=== PATIENT | female | born 1980 | race Caucasian/White ===

== ENCOUNTER → 2021-03-09 10:06 | Outpatient (BNVA) | payer MEDICARE, MEDICAID, SELFPAY | PROVIDERS: PCP Internal Medicine; Referring Provider Internal Medicine; Visit Provider Physician Assistant ==

== ENCOUNTER → 2021-03-14 08:03 | Outpatient (BNVA) | payer MEDICARE, MEDICAID, SELFPAY | PROVIDERS: PCP Internal Medicine; Visit Provider Surgery ==

== ENCOUNTER → 2021-03-15 14:48 | Outpatient (BNVA) | payer MEDICARE, MEDICAID, SELFPAY | PROVIDERS: PCP Internal Medicine; Visit Provider Surgery | DX: E66.01 Morbid (severe) obesity due to excess calories (principal); G47.30 Sleep apnea, unspecified; K21.9 Gastro-esophageal reflux disease without esophagitis; E78.5 Hyperlipidemia, unspecified; Z68.42 Body mass index [BMI] 45.0-49.9, adult | CPT/HCPCS: Q3014 ==

== ENCOUNTER → 2021-03-28 10:33 | Day surgery (SDC) | payer MEDICARE, MEDICAID, SELFPAY ==
[2021-03-21 15:53] VITALS: BMI 50.6
--- NOTE | 2021-03-28 14:46 | HO.ANESPROP2 ---
HPI - Anesthesia Eval Consult details Narrative: 40yo F for Upper Endoscopy PMFSH Active Problems Active Problems: All Active Problems (Updated 03/21/21 @ 15:57 by Sybil Valladares) Insulin dependent diabetes mellitus (Acute) Insomnia (Acute) Depression (Acute) Back pain (Acute) Hyperlipidemia (Acute) GERD (gastroesophageal reflux disease) (Acute) Sleep apnea (Acute) Morbid obesity (Acute) Past Medical History Medical History Back pain COVID-19 vaccine administered Depression Fatty liver GERD (gastroesophageal reflux disease) Hx of cellulitis of skin with lymphangitis Hyperlipidemia Insomnia Insulin dependent diabetes mellitus Morbid obesity Sleep apnea Family History Family History Mother Thyroid disease Father Diabetes Brother No problems noted. Brother No problems noted. Brother No problems noted. Son No problems noted. Daughter No problems noted. Surgical History Surgical History Hx of section Hx of laparoscopic gastric banding Social History Social History Are you a primary home health care respiratory therapist to a significant other at home: No Do you presently have visiting nurse or other home services: No Alcohol intake: current Alcohol intake frequency: holidays/special occasions only Patient Tobacco Use Status: Never used Tobacco Substance Use Type: Marijuana Meds Allergies Allergy/AdvReac Type Severity Reaction Status Date / Time amoxicillin [Amoxicillin] Allergy Severe RASH Verified 03/30/21 07:04 Home Medications Medication Instructions Recorded Confirmed Last Taken Type atorvastatin 20 mg tablet 20 mg PO DAILY 03/14/21 03/21/21 Unknown History bupropion HCl 150 mg tablet,12 hr 150 mg PO DAILY 03/14/21 03/21/21 Unknown History sustained-release fluconazole 150 mg tablet 150 mg PO DAILY 03/14/21 03/21/21 Unknown History insulin aspart U-100 100 unit/mL SUBCUT USEASDIRECTD 03/14/21 03/15/21 Unknown History subcutaneous solution ketoconazole 2 % shampoo 1 appl TOPICAL DAILY 03/14/21 03/21/21 Unknown History mirtazapine 7.5 mg tablet 7.5 mg PO BEDTIME 03/14/21 03/21/21 Unknown History sertraline 100 mg tablet 100 mg PO BEDTIME 03/14/21 03/21/21 Unknown History insulin degludec [Tresiba 85 unit SUBCUT QPM 03/21/21 03/21/21 Unknown History FlexTouch U-100] Exam Exam Date and Time: March 28, 2021 1446 Height,Weight and Vital Signs: Height 5 ft 8 in Weight 151.046 kg Pertinent Lab Results Pertinent Lab Results: Laboratory Tests 03/28/21 03/28/21 11:10 11:10 WBC 5.5 Hgb 12.1 Hct 39.1 Plt Count 219 Sodium 138 Potassium 4.3 Chloride 102 Carbon Dioxide 29 BUN 8 L Creatinine 0.68 Assessment and Plan Assessment Anesthesia Assessment: Chart Reviewed
== END ==
PROVIDERS: PCP Internal Medicine; Visit Provider Surgery
DX: K21.9 Gastro-esophageal reflux disease without esophagitis (principal); Z53.8 Procedure and treatment not carried out for other reasons; E66.01 Morbid (severe) obesity due to excess calories; Z68.42 Body mass index [BMI] 45.0-49.9, adult; G47.33 Obstructive sleep apnea (adult) (pediatric); E11.9 Type 2 diabetes mellitus without complications; Z79.4 Long term (current) use of insulin; E78.5 Hyperlipidemia, unspecified; K76.0 Fatty (change of) liver, not elsewhere classified; Z79.899 Other long term (current) drug therapy; Z88.0 Allergy status to penicillin; Z98.84 Bariatric surgery status; F12.90 Cannabis use, unspecified, uncomplicated

== ENCOUNTER 2021-03-28 10:57 | Outpatient (REF) | payer MEDICARE, MEDICAID, SELFPAY ==
[2021-03-28 12:04] LABS: MANUAL DIFF FLAG NO
[2021-03-28 12:08] LABS: Basophils Percent Auto 0.7 % (0-2); Eosinophils Absolute Auto 0.1 X10*3/uL (0.0-0.4); Eosinophils Percent Auto 1.8 % (0-4); Hematocrit 39.1 % (37-47); Hemoglobin 12.1 g/dl (12.0-16.0); Imm Gran Abs Auto 0.01 X10*3/uL (0.00-0.03); Imm Gran Pct Auto 0.2 % (0.0-0.4); Lymphocytes Absolute Auto 2.2 X10*3/uL (1.2-4.9); Lymphocytes Percent Auto 39.8 % (20-40); Mean Corpuscular HGB Conc 30.9 g/dl (31.0-35.0); Mean Corpuscular Hemoglobin 24.8 pg (27.0-33.0); Mean Corpuscular Volume 80.3 fL (80-98); Mean Platelet Volume 11.2 fL (9.4-12.3); Monocytes Absolute Auto 0.3 X10*3/uL (0.1-1.2); Monocytes Percent Auto 5.7 % (2-11); Neutrophils Absolute Auto 2.8 X10*3/uL (2.0-8.3); Neutrophils Percent Auto 51.8 % (45-73); Platelet Count 219 X10*3/uL (160-400); Red Blood Count 4.87 X10*6/uL (4.20-5.50); Red Cell Distribution Width 14.4 % (11.0-16.0); White Blood Count 5.5 X10*3/uL (4.8-10.8)
[2021-03-28 12:19] LABS: Alanine Aminotransferase 14 U/L (0-31); Albumin Level 3.7 g/dL (3.5-5.0); Alkaline Phosphatase 85 U/L (39-117); Anion Gap 11 (12-20); Aspartate Amino Transferase 13 U/L (5-31); Bilirubin Total 1.1 mg/dL (0.0-1.0); Blood Urea Nitrogen 8 mg/dL (9-16); C Reactive Protein 1.11 mg/dL (< or = 0.50); Calcium 8.8 mg/dL (8.4-10.2); Carbon Dioxide 29 mmol/L (22-29); Chloride 102 mmol/L (96-108); Cholesterol 177 mg/dL; Estimated Glomerular Filt Rate > 60; Glucose Random 247 mg/dL (60-115); HDL Cholesterol 61 mg/dL; Iron 40 mcg/dL (30-160); LDL Cholesterol Calculated 89 mg/dl; Percent Iron Saturation 12 % (15-50); Potassium 4.3 mmol/L (3.3-5.1); Sodium 138 mmol/L (135-145); Total Iron Binding Capacity 339 mcg/dL (228-428); Total Protein 6.7 g/dL (6.5-8.0); Triglycerides 139 mg/dL; Unsaturated Iron Binding 299 ug/dL
[2021-03-28 12:43] LABS: Ferritin 19 ng/mL (10-122); TSH reflex Free T4 1.34 uIU/mL (0.32-4.0); Vitamin D 25-OH Total 22.4 ng/mL (>30)
[2021-03-28 13:01] LABS: Folate 14.2 ng/mL (> or = 4.0); Vitamin B12 399 pg/mL (200-900)
[2021-03-28 13:13] LABS: Estimated Average Glucose 349 mg/dL; Hemoglobin A1c % 13.8 %
[2021-03-29 09:51] LABS: Insulin Level Total 49.5 uIU/mL
[2021-03-30 10:07] LABS: Calcium (PTHI) 8.8 mg/dL (8.6-10.2); PTHI 60 pg/mL (14-64)
[2021-03-31 07:32] LABS: Zinc 69 mcg/dL (60-130)
[2021-04-01 17:32] LABS: Vitamin A 32 mcg/dL (38-98)
[2021-04-04 06:22] LABS: Vitamin B1 8 nmol/L (8-30)
== END 2021-03-28 10:58 | disposition home or self-care (01) ==
LOC: HO.LAB 10:57
PROVIDERS: PCP Internal Medicine; Visit Provider Surgery
DX: E66.01 Morbid (severe) obesity due to excess calories (principal); E78.5 Hyperlipidemia, unspecified; K21.9 Gastro-esophageal reflux disease without esophagitis
CPT/HCPCS: 36415; 80053; 80061; 82306; 82607; 82728; 82746; 83036; 83525; 83540; 83970; 84425; 84443; 84590; 84630; 85025; 86140

== ENCOUNTER 2021-03-30 06:44 | Day surgery (SDC) | payer MEDICARE, MEDICAID, SELFPAY ==
[2021-03-30 06:54] VITALS: BMI 50.9
[2021-03-30 06:55] VITALS: BP 129/84; PULSE 107; RESP 18; TEMP 36.6; O2SAT 96
[2021-03-30 06:56] LABS: UPreg QC Valid YES
[2021-03-30 06:57] LABS: Urine Pregnancy NEGATIVE (NEGATIVE)
[2021-03-30] MEDS: Lactated Ringers 1,000 ML 100 ML IVCONT (07:18)
--- NOTE | 2021-03-30 07:18 | P.CONAN_ITS ---
[facility] Active Problems Active Problems: All Active Problems (Updated 03/21/21 @ 15:57 by Sybil humphrey) Insulin dependent diabetes mellitus (Acute) Insomnia (Acute) Depression (Acute) Back pain (Acute) Hyperlipidemia (Acute) GERD (gastroesophageal reflux disease) (Acute) Sleep apnea (Acute) Morbid obesity (Acute) Past Medical History Medical History Back pain COVID-19 vaccine administered Depression Fatty liver GERD (gastroesophageal reflux disease) Hx of cellulitis of skin with lymphangitis Hyperlipidemia Insomnia Insulin dependent diabetes mellitus Morbid obesity Sleep apnea Family History Family History Mother Thyroid disease Father Diabetes Brother No problems noted. Brother No problems noted. Brother No problems noted. Son No problems noted. Daughter No problems noted. Surgical History Surgical History Hx of section Hx of laparoscopic gastric banding Social History Social History Are you a primary senior care provider to a significant other at home: No Do you presently have visiting nurse or other home services: No Alcohol intake: current Alcohol intake frequency: holidays/special occasions only Patient Tobacco Use Status: Never used Tobacco Use of substances other than those prescribed or required for medical reasons: No Substance Use Type: Marijuana Have you been hit, kicked, punched, or otherwise hurt by someone within the past year? If so, by whom?: No Are you DNR?: No Advance Directives: No Advance Directives Information Provided: Yes Meds Allergies Allergy/AdvReac Type Severity Reaction Status Date / Time amoxicillin [Amoxicillin] Allergy Severe RASH Verified 03/30/21 07:04 Active Medications: Current Medications Generic Name Dose Route Start Last Admin Trade Name Freq PRN Reason Stop Dose Admin Lactated Ringer's 1,000 mls @ 100 mls/hr 03/30/21 06:30 Lr IVCONT .Q10H [facility] Home Medications Medication Instructions Recorded Confirmed Last Taken Type atorvastatin 20 mg tablet 20 mg PO DAILY 03/14/21 03/21/21 Unknown History bupropion HCl 150 mg tablet,12 hr 150 mg PO DAILY 03/14/21 03/21/21 Unknown History sustained-release fluconazole 150 mg tablet 150 mg PO DAILY 03/14/21 03/21/21 Unknown History insulin aspart U-100 100 unit/mL SUBCUT USEASDIRECTD 03/14/21 03/15/21 Unknown History subcutaneous solution ketoconazole 2 % shampoo 1 appl TOPICAL DAILY 03/14/21 03/21/21 Unknown History mirtazapine 7.5 mg tablet 7.5 mg PO BEDTIME 03/14/21 03/21/21 Unknown History sertraline 100 mg tablet 100 mg PO BEDTIME 03/14/21 03/21/21 Unknown History insulin degludec [Tresiba 85 unit SUBCUT QPM 03/21/21 03/21/21 Unknown History FlexTouch U-100] Exam Exam Date and Time: March 30, 2021 0718 Height,Weight and Vital Signs: Height 5 ft 8 in Weight 151.953 kg Last Vital Signs Temp 97.8 F 03/30/21 06:55 Pulse 107 H 03/30/21 06:55 Resp 18 03/30/21 06:55 BP 129/84 03/30/21 06:55 Pulse Ox 96 03/30/21 06:55 Pertinent Lab Results Pertinent Lab Results: Laboratory Tests 03/30/21 06:40 Urine Test NEGATIVE Airway Mallampati Class: III TM Dist: >3cm Neck ROM: Full Loose/Missing/Broken Teeth: Yes and Upper Heart: RRR Lungs: CTA Assessment and Plan Assessment Anesthesia Assessment: Anesthesia Plan Discussed and Chart Reviewed Final Anesthetic Review NPO: Yes ASA Class: III Final Preanesthetic Review: Meds/Allgs Chart Reviewed, Consent Obtained/Reviewed and Anes Risks/Benef Reviewed Patient Risk: Intermediate Procedure Risk: Intermediate Anesthetic Plan Anesthetic Plan: MAC: Disposition: Standard PACU
[2021-03-30 07:27] LABS: Glucose, Whole Blood 361 mg/dL (60-115)
--- NOTE | 2021-03-30 07:42 | MHC.SHP ---
Pre-Procedural Eval Section A The patient is an INPATIENT: No The History & Physical has been completed within 30 days and I have reviewed it.: Yes Section B Chief Complaint: GERD Details of Present Illness: GERD Relevant Family History (Specify if Yes): No Relevant Social History: None Present Medications: see Short Stay Collaborative assessment Medical History: No relevant PMH History of Previous Operations: No relevant previous surgery Allergies: Allergies Allergy/AdvReac Type Severity Reaction Status Date / Time amoxicillin [Amoxicillin] Allergy Severe RASH Verified 03/30/21 07:04 Review of Systems Sugical H&P ROS: Negative: Constitution, Cardiovascular, Respiratory, Neurological, Psychiatric, Hem-Onc, Allergic/Immunologic, Gastrointestinal, Genitourinary, Musculoskeletal, Integumentary, Endocrine and Eyes/Ears/Nose/Throat Exam Surgical H&P Exam: Normal: HEENT, Normal: Heart, Normal: Lungs, Normal: Extremities, Normal: Abdomen, Normal: Skin and Normal: Neurological Plan Diagnosis/Plan: Unchanged (EGD to assess for GERD and H pylori) I have reviewed the history and physical and performed a pertinent physical examination on my patient. No changes have occurred unless specified.
[2021-03-30 08:06] VITALS: BP 91/48; PULSE 89; RESP 18; TEMP 36.6; O2SAT 99
--- NOTE | 2021-03-30 08:08 | PM.OP ---
Brief Operative Note Date of Service: 03/30/21 Pre-op diagnosis: GERD Post-op diagnosis: same (hiatal hernia and esophagitis) Procedure: PROCEDURE DATE: 03/30/2021 PREOPERATIVE DIAGNOSIS: GERD and obesity POSTOPERATIVE DIAGNOSIS: Same as above. 1) small hiatal hernia, 2) distal gastritis, 3) esophagitis III PROCEDURE: [id number] with biopsies Surgeon: Jamaal Ley M.D.. Ph.D. Mobile Device Developer: None Anesthesia: IV sedation Estimated blood loss: Minimal FINDINGS AND PROCEDURE: OPERATIVE INDICATIONS: The patient is a 40 year old female known to in who is evaluated for morbid obesity and bariatric surgery. She had severe GERD and was not able to discontinue the PPI for 2 weeks to perform the H. pylori breath test. She presents for an endoscopy and a biopsy. Risks and complications of the surgery were discussed with the patient in advance particularly the possibility of perforation or bleeding that may require surgical intervention. The patient understood the risks and was in agreement with the plan. PROCEDURE: After informed consent was obtained by the patient, the patient was transferred to the Operating Room and was placed in the supine position. After successful induction of IV sedation, a mouth block was inserted and the patient was placed in the left lateral decubitus position. An upper endoscopy was performed next, the oropharynx and esophagus appeared within the normal limits. There was a small hiatal hernia. The z-line was irregular with tongus of gastric mucosa protruding into the esophagus in more than 50% circumference. One biopsy was obtained from the distal esohagus 2-3 cm proximal to the GE junction and two additional biopsies from the GE junction. The stomach was entered and it appeared to be of normal size. There was mild gastritis at distal antrum. There was no stricture or ulcer. Biopsies were obtained from the proximal stomach as well as the distal antrum. There were also several polyps especially in the gastric fundus and a more prominent of them was also biopsied. No significant bleeding was noted from any of the biopsy sites. The scope was then advanced into the duodenum which appeared to be normal as well. At that point the duodenum and the stomach were decompressed and the scope was withdrawn from the patient's mouth. The patient extubated and was transferred in stable condition to the Recovery Room for further care. I was present and performed all steps of the procedure. There were no residents to assist with this case. Jamaal Ley M.D., Ph.D. Surgeon: Mickey Ley MD Anesthesia: MAC Was an Mobile Device Developer used for this Procedure?: No Estimated blood loss (mL): 0 IV fluids (mL): 400 Urine output (mL): 0 (No Garcia to record) Pathology: other (1) GEJx2, 2) distal esophagus x1, 3) proximal stomach x1, 4) antrum x1) Condition: stable Disposition: PACU
[2021-03-30 08:22] VITALS: BP 104/66; PULSE 94; RESP 16; TEMP 36.6; O2SAT 95
== END 2021-03-30 08:45 | disposition home or self-care (01) ==
PROVIDERS: Nurse Practitioner; PCP Internal Medicine; Visit Provider Surgery
PROC: 0DJ08ZZ Inspection of Upper Intestinal Tract, Via Natural or Artificial Opening Endoscopic (ICD-10-PCS; CPT 43235; principal; 2021-03-30 08:10)
DX: K21.9 Gastro-esophageal reflux disease without esophagitis (principal); K20.80 Other esophagitis without bleeding; K44.9 Diaphragmatic hernia without obstruction or gangrene; K29.50 Unspecified chronic gastritis without bleeding; E66.01 Morbid (severe) obesity due to excess calories; Z68.42 Body mass index [BMI] 45.0-49.9, adult; K76.0 Fatty (change of) liver, not elsewhere classified; E78.5 Hyperlipidemia, unspecified; E11.9 Type 2 diabetes mellitus without complications; Z79.4 Long term (current) use of insulin; Z98.84 Bariatric surgery status; G47.30 Sleep apnea, unspecified; F32.9 Major depressive disorder, single episode, unspecified; F12.90 Cannabis use, unspecified, uncomplicated; Z79.899 Other long term (current) drug therapy; Z88.0 Allergy status to penicillin
CPT/HCPCS: 43239; 81025; 82947; 88305; 88342

== ENCOUNTER → 2021-04-10 07:47 | Outpatient (BNVA) | payer MEDICARE, MEDICAID, SELFPAY | PROVIDERS: PCP Internal Medicine; Visit Provider Surgery | DX: E66.01 Morbid (severe) obesity due to excess calories (principal); E50.9 Vitamin A deficiency, unspecified | CPT/HCPCS: Q3014 ==

== ENCOUNTER → 2021-04-11 08:13 | Outpatient (BNVA) | payer MEDICARE, MEDICAID, SELFPAY | PROVIDERS: PCP Internal Medicine; Visit Provider Dietitian, Registered ==

== ENCOUNTER → 2021-04-17 09:46 | Outpatient (REF) | payer MEDICARE, MEDICAID, SELFPAY | LOC: HO.SL 09:46 | PROVIDERS: PCP Internal Medicine; Visit Provider Surgery | DX: Z01.818 Encounter for other preprocedural examination (principal); G47.10 Hypersomnia, unspecified; G47.19 Other hypersomnia; E66.01 Morbid (severe) obesity due to excess calories; K21.9 Gastro-esophageal reflux disease without esophagitis | CPT/HCPCS: 95806 ==

== ENCOUNTER → 2021-05-05 14:53 | Outpatient (BNVA) | payer MEDICARE, MEDICAID, SELFPAY | PROVIDERS: PCP Internal Medicine; Visit Provider Dietitian, Registered | DX: E66.01 Morbid (severe) obesity due to excess calories (principal); E11.9 Type 2 diabetes mellitus without complications; Z79.4 Long term (current) use of insulin | CPT/HCPCS: 97802 ==

== ENCOUNTER → 2021-05-17 07:31 | Outpatient (BNVA) | payer MEDICARE, MEDICAID, SELFPAY | PROVIDERS: PCP Internal Medicine; Visit Provider Surgery ==

== ENCOUNTER → 2021-05-26 08:25 | Outpatient (BNVA) | payer MEDICARE, MEDICAID, SELFPAY | PROVIDERS: PCP Internal Medicine; Visit Provider Dietitian, Registered | DX: E66.01 Morbid (severe) obesity due to excess calories (principal); Z68.43 Body mass index [BMI] 50.0-59.9, adult | CPT/HCPCS: 97803 ==